=== PATIENT | female | born 1995 | race American Indian/Alaskan Native ===

== ENCOUNTER 2021-05-29 21:22 | Emergency (ER) | payer SELFPAY | END 2021-05-30 05:35 | disposition left against medical advice (07) | LOC: ED 21:22 | DX: M54.2 Cervicalgia (principal); M25.579 Pain in unspecified ankle and joints of unspecified foot; Z53.21 Procedure and treatment not carried out due to patient leaving prior to being seen by health care provider ==

== ENCOUNTER 2021-05-30 09:21 | Emergency (ER) | payer SELFPAY ==
[2021-05-30 10:06] VITALS: BP 144/88
== END 2021-05-30 18:16 | disposition left against medical advice (07) ==
LOC: ED 09:21
DX: M79.18 Myalgia, other site (principal); Z53.21 Procedure and treatment not carried out due to patient leaving prior to being seen by health care provider